=== PATIENT | female | born 1975 | race African-American/Black ===

== ENCOUNTER 2019-03-03 21:40 | Emergency (ER) | payer OTHER ==
[~2019-03-03] VITALS: Ht 152.4 cm; Wt 59.0 kg
[2019-03-03 22:00] VITALS: BP 115/70
--- NOTE | 2019-03-03 22:00 | NUR ---
ED Nurse Note: Pt ambulated to ED fom home c/o 5/10 abdominal pain and productive cough x2 days. Pt VSS A&Ox4
[2019-03-03] MEDS ORDERED: GUAIFENESIN DM118 M1 ORAL (22:08)
[2019-03-03] MEDS ORDERED: DICYCLOMINE HCL10 MG ORAL (22:09)
[2019-03-03] MEDS ORDERED: Lidocaine 2% Visc 15ml soln ORAL ONE (22:15)
[2019-03-03] MEDS ORDERED: Dicyclomine HCl 10mg/5ml oral soln ORAL ONE (22:15)
[2019-03-03 22:30] VITALS: BP 115/70
--- NOTE | 2019-03-03 22:30 | NUR ---
ER DISCHARGE NOTE: Patient is cleared to be discharged per ERMD, pt is aox4, on room air, with stable vital signs. pt was given dc and prescription instructions, pt was able to verbalize understanding, pt id band removed. pt is able to ambulate with steady gait. pt took all belongings.
[2019-03-03 22:40] LABS: APPEARANCE,URINE CLEAR; BILIRUBIN, URINE NEGATIVE (NEGATIVE); COLOR,URINE PALE YELLOW; GLUCOSE, URINE (UA) NEGATIVE (NEGATIVE); KETONES,URINE NEGATIVE (NEGATIVE); LEUKOCYTE ESTERASE ,URINE NEGATIVE (NEGATIVE); NITRITE,URINE NEGATIVE (NEGATIVE); PH,URINE 8 (4.5-8.0); PROTEIN,URINE NEGATIVE (NEGATIVE); UROBILINOGEN,URINE NORMAL MG/DL (0.0-1.0)
--- NOTE | 2019-03-04 01:39 | Emergency Room Report ---
History of Present Illness General Chief Complaint: Upper Respiratory Illness Source: Patient Present Illness HPI Patient 44-year-old female presented after increased congestion. Allergies: Coded Allergies: No Known Allergies (Unverified , 03/03/19) Patient History Reviewed Nursing Documentation: PMH: Agreed; PSxH: Agreed Nursing Documentation-PMH Past Medical History: No Stated History Review of Systems All Other Systems: negative except mentioned in HPI Physical Exam Vital Signs Date Time Temp Pulse Resp B/P (MAP) Pulse Ox O2 Delivery O2 Flow Rate FiO2 03/03/19 21:49 97.9 72 16 110/70 (83) 99 Room Air General Appearance: well appearing, no apparent distress, alert, GCS 15, non- toxic Head: normocephalic, atraumatic ENT: hearing grossly normal, normal voice Neck: full range of motion, supple Respiratory: no respiratory distress, speaking full sentences Cardiovascular #1: normal inspection, normal peripheral pulses, regular rate, rhythm Musculoskeletal: no calf tenderness Neurologic: normal gait Psychiatric: mood/affect normal Skin: no rash Medical Decision Making Diagnostic Impression: Primary Impression: Viral respiratory infection Last Vital Signs Date Time Temp Pulse Resp B/P (MAP) Pulse Ox O2 Delivery O2 Flow Rate FiO2 03/03/19 21:49 97.9 72 16 110/70 (83) 99 Room Air Disposition: HOME, SELF-CARE Condition: Stable Scripts Dicyclomine Hcl* (DICYCLOMINE HCL*) 10 Mg Capsule 10 MG ORAL QID, #20 CAP Prov: Steve Calderón MD 03/03/19 Guaifenesin/Dextromethorphan (Guaifenesin Dm Syrup) 5 Ml Syrup 1 TSP ORAL Q8H, #118 ML 0 Refills Prov: Steve Calderón MD 03/03/19 Referrals: GERONIMO PEÑA,REFERRING (PCP) Departure Forms: Return to Work Return to Work in (Days): 2 Patient Instructions: Upper Respiratory Infection, Adult, Abdominal Pain, Adult Steve Calderón MD Mar 04, 2019 01:39
== END 2019-03-03 22:45 | disposition home or self-care (01) ==
LOC: EMR 22:34
DX: J06.9 Acute upper respiratory infection, unspecified (principal)
CPT/HCPCS: 81003; 81025; 99283

== ENCOUNTER 2019-03-10 20:16 | Emergency (ER) | payer OTHER ==
[~2019-03-10 20:16] MED LIST: DICYCLOMINE HCL10 MG ORAL; GUAIFENESIN DM118 M1 ORAL
--- NOTE | 2019-03-10 20:19 | NUR ---
patient called for triage; not in waiting room
--- NOTE | 2019-03-10 20:30 | NUR ---
PATIENT CALLED FOR TRIAGE; NOT IN WAITING ROOM
--- NOTE | 2019-03-10 20:49 | NUR ---
ED Nurse Note: PATIENT CALLED FOR TRIAGE; NOT IN WAITING ROOM
--- NOTE | 2019-03-11 03:43 | Emergency Room Report ---
History of Present Illness General Chief Complaint: To Be Triaged Source: Medical Record Present Illness HPI Patient apparently presented with a cough. Allergies: Coded Allergies: No Known Allergies (Unverified , 03/03/19) Medical Decision Making Diagnostic Impression: Primary Impression: Patient left without being seen ER Course Patient left prior to the triage. Disposition: LEFT W/OUT BEING SEEN Condition: Unknown Referrals: GERONIMO PEÑA,REFERRING (PCP) Dean Solis MD Mar 11, 2019 03:43
[2019-03-11] MEDS ORDERED: ZITHROMAX250 MG ORAL (20:17)
[2019-03-11] MEDS ORDERED: VENTOLIN HFA18 GM INH (20:17)
[2019-03-11] MEDS ORDERED: PROMETHAZI6.25 MG/1 ORAL (20:17)
== END 2019-03-10 20:49 | disposition left against medical advice (07) ==
LOC: EMR 20:49
DX: R05 Cough (principal); Z53.21 Procedure and treatment not carried out due to patient leaving prior to being seen by health care provider

== ENCOUNTER 2019-03-11 19:51 | Emergency (ER) | payer OTHER ==
[~2019-03-11] VITALS: Ht 154.9 cm; Wt 59.0 kg
--- NOTE | 2019-03-11 20:16 | Emergency Room Report ---
History of Present Illness General Chief Complaint: Upper Respiratory Illness Source: Patient Present Illness HPI 44-year-old female with no significant past medical history here complaining of over 1 week of cough and congestion. Patient was previously here on March 03, 2019 and diagnosed with viral upper respiratory infection given proper medication. Patient reports that her cough has not improved. Patient came here yesterday however left without being seen. Denies fever and chills, sore throat, chest pain, shortness of breath, palpitation nausea vomiting. Patient reports that she has minimal white when coughing and wheezing at nighttime. Denies smoking tobacco or marijuana. Has not taken any other medication other than what has been prescribed. Allergies: Coded Allergies: No Known Allergies (Unverified , 03/03/19) Patient History Past Medical History: see triage record Past Surgical History: unable to obtain Pertinent Family History: none Last Menstrual Period: 02/23/19 Now: No Immunizations: UTD Reviewed Nursing Documentation: PMH: Agreed; PSxH: Agreed Nursing Documentation-PMH Past Medical History: No Stated History Review of Systems All Other Systems: negative except mentioned in HPI Physical Exam Vital Signs Date Time Temp Pulse Resp B/P (MAP) Pulse Ox O2 Delivery O2 Flow Rate FiO2 03/11/19 20:06 97.5 71 18 111/72 (85) 96 Room Air Sp02 EP Interpretation: reviewed, normal General Appearance: normal inspection, well appearing, no apparent distress, alert, GCS 15, non-toxic Head: normocephalic, atraumatic Eyes: bilateral eye normal inspection, bilateral eye PERRL ENT: normal ENT inspection, hearing grossly normal, normal pharynx, no angioedema, TMs + canals normal, uvula midline Neck: normal inspection, full range of motion, supple, thyroid normal, no meningismus, no bony tend Respiratory: normal inspection, chest non-tender, lungs clear, normal breath sounds, no rhonchi, no respiratory distress, no retraction, no accessory muscle use, no wheezing Cardiovascular #1: normal inspection, regular rate, rhythm, no edema, no murmur Gastrointestinal: normal inspection, non tender, soft, no bruit Genitourinary: no CVA tenderness Musculoskeletal: normal inspection, back normal, digits/nails normal Neurologic: normal inspection, alert, oriented x3 Psychiatric: normal inspection, judgement/insight normal Skin: no rash Lymphatic: normal inspection, no adenopathy Medical Decision Making PA Attestation All my diagnosis and treatment plans were reviewed ad discussed with my supervising physician Dr. Singer Diagnostic Impression: Primary Impression: Pharyngitis ER Course 44-year-old female with no significant past medical history here complaining of over 1 week of cough and congestion. Patient was previously here on March 03, 2019 and diagnosed with viral upper respiratory infection given proper medication. Patient reports that her cough has not improved. Patient came here yesterday however left without being seen. Denies fever and chills, sore throat, chest pain, shortness of breath, palpitation nausea vomiting. Patient reports that she has minimal white when coughing and wheezing at nighttime. Denies smoking tobacco or marijuana. Has not taken any other medication other than what has been prescribed. Ddx considered but are not limited to: strep pharyngitis, URI, tonsilitis, peritonsillar absacess, influneza Vital signs: are WNL, pt. is afebrile H&PE are most consistent with: Pharyngitis ORDERS: Azithromycin, Phenergan, albuterol ED INTERVENTIONS: None required at this time. DISCHARGE: At this time pt. is stable for d/c to home. Will provide printed patient care instructions, and any necessary prescriptions. Care plan and follow up instructions have been discussed with the patient prior to discharge. I advised the patient to start azithromycin and 5 to 6 days if no improvement of symptoms at this time patient has viral symptoms however she is retaining the emergency room with similar complaints advised the patient to follow-up with the primary care provider. Last Vital Signs Date Time Temp Pulse Resp B/P (MAP) Pulse Ox O2 Delivery O2 Flow Rate FiO2 03/11/19 20:06 97.5 71 18 111/72 (85) 96 Room Air Disposition: HOME, SELF-CARE Condition: Stable Scripts Azithromycin* (ZITHROMAX*) 250 Mg Tablet 250 MG ORAL DAILY, #6 TAB 0 Refills Take two tables once daily for 1 day, then one tablet once daily for 4 days. Prov: Constanza Alvarado 03/11/19 Albuterol Sulfate (VENTOLIN HFA) 18 Gm Hfa.aer.ad 2 PUFFS INH EVERY 6 HOURS, #18 GM 0 Refills Prov: Constanza Alvarado 03/11/19 Promethazine Hcl (PROMETHAZINE HCL*) 6.25 Mg/5 Ml Syrup 5 ML ORAL Q6H, #120 ML 0 Refills Prov: Constanza Alvarado 03/11/19 Patient Instructions: Pharyngitis, [id number] Additional Instructions: Start azithromycin and for for 5 days if no improvement in cough and congestion follow-up with a primary care provider Constanza Alvarado Mar 11, 2019 20:16
[2019-03-11] MEDS ORDERED: ZITHROMAX250 MG ORAL (20:17)
[2019-03-11] MEDS ORDERED: PROMETHAZI6.25 MG/1 ORAL (20:17)
[2019-03-11] MEDS ORDERED: VENTOLIN HFA18 GM INH (20:17)
[2019-03-11 20:20] VITALS: BP 111/72
--- NOTE | 2019-03-11 20:20 | NUR ---
ED Nurse Note: PT SEEN BY MD AND RELEASED, PT HERE FOR C/O COUGH, PT WAS SEEN HRE 3 DAYS AGO, PT HAS BEEN GIVEN RPESCRIPTIONS AND F/U INFO, ALSO CAN RE-VERBALIZE PROPER MEDICATION ADMINISTRATION AND S/S TO MONITOR FOR, ARMBAND REMOVED, PT AMBULATORY, NO SOB OR LABORED BREATHING, NAD NOTED DURING D/C TO HOME.
== END 2019-03-11 20:20 | disposition home or self-care (01) ==
LOC: EMR 20:16
DX: J02.9 Acute pharyngitis, unspecified (principal)
CPT/HCPCS: 99282

== ENCOUNTER 2019-10-11 05:55 | Emergency (ER) | payer MEDICAID, OTHER ==
[~2019-10-11] VITALS: Ht 154.9 cm; Wt 54.4 kg
[~2019-10-11 05:55] MED LIST changes: +PROMETHAZI6.25 MG/1 ORAL; +VENTOLIN HFA18 GM INH; +ZITHROMAX250 MG ORAL
[2019-10-11] MEDS ORDERED: Ketorolac 30mg Inj IV ONE (06:00)
--- NOTE | 2019-10-11 06:00 | NUR ---
ED Nurse Note: some previous charting on paper, recieved pt from home, here with c/o abdominal pain with diarrhea and nausea x 1 day, denies fevers or emesis, pt thinks she may have food poisioning, pt denies any other complaitns, pt is falling asleep in triage chair, is very drowsy, also her friend with her, pt gowned and placed on monitoring, will resume care as ordered and closely monitor.
[2019-10-11 06:05] VITALS: BP 100/67
--- NOTE | 2019-10-11 06:14 | Emergency Room Report ---
History of Present Illness General Chief Complaint: To Be Triaged Source: Patient Present Illness HPI Is a 44-year-old female with no past medical history. She presents with chief complaint abdominal pain and diarrhea. Onset last night. Pain is sharp and crampy. 9 out of 10. She thought this was because she ate some store-bought soup at the hot bar. 2 hours after which she had the symptoms. No one else at the same thing. No one also sick. She felt nauseous but no vomiting. Denies any other complaint. No fever chills. No bloody diarrhea. No cough or congestion. Pain is diffuse nature. No radiation. Allergies: Coded Allergies: No Known Allergies (Unverified , 03/03/19) Patient History Past Medical History: see triage record, old chart reviewed Past Surgical History: none, Pertinent Family History: none Social History: Denies: smoking Now: No Immunizations: other Reviewed Nursing Documentation: PMH: Agreed; PSxH: Agreed Review of Systems Eye: Denies: eye pain, blurred vision ENT: Denies: ear pain, nose congestion, throat swelling Respiratory: Denies: cough, shortness of breath Cardiovascular: Denies: chest pain, palpitations Gastrointestinal: Reports: abdominal pain, diarrhea, nausea; Denies: vomiting Musculoskeletal: Denies: back pain, joint pain Skin: Denies: rash Neurological: Denies: headache, numbness Endocrine: Denies: increased thirst, increased urine Hematologic/Lymphatic: Denies: easy bruising All Other Systems: negative except mentioned in HPI Physical Exam Vitals unremarkable Sp02 EP Interpretation: reviewed, normal General Appearance: well appearing, no apparent distress, alert Head: normocephalic, atraumatic Eyes: bilateral eye PERRL, bilateral eye EOMI ENT: hearing grossly normal, normal pharynx Neck: full range of motion, supple, no meningismus Respiratory: chest non-tender, lungs clear, normal breath sounds Cardiovascular #1: regular rate, rhythm, no murmur Gastrointestinal: no mass, no organomegaly, no bruit, non-distended, abnormal bowel sounds - hyperactive gurgling BS, tenderness Musculoskeletal: back normal, normal range of motion, gait/station normal Psychiatric: mood/affect normal Medical Decision Making Diagnostic Impression: Primary Impression: Abdominal pain Qualified Codes: R10.84 - Generalized abdominal pain Additional Impression: Diarrhea Qualified Codes: R19.7 - Diarrhea, unspecified ER Course Patient with abdominal pain and diarrhea. This may be early gastroenteritis versus food poisoning. Patient is otherwise stable. Will check labs and give medication and fluids. If everything is normal, she may be discharged home. [place] better now. Will discharge home. Status: improved Disposition: HOME, SELF-CARE Condition: Stable Scripts Ibuprofen* (MOTRIN*) 600 Mg Tablet 600 MG ORAL THREE TIMES A DAY, #30 TAB 0 Refills Prov: Daniel Lawler MD 10/11/19 Ondansetron (Zofran) 4 Mg Tablet 4 MG ORAL Q6H PRN for Nausea & Vomiting, #10 TAB 0 Refills Prov: Daniel Lawler MD 10/11/19 Additional Instructions: Advance the diet as tolerated. May take Pepto-Bismol for diarrhea. Do not take anything else. Follow-up with your doctor in 2 to 3 days if not better. Return if symptoms worsen. Daniel Lawler MD Oct 11, 2019 06:14
[2019-10-11] MEDS ORDERED: ZOFRAN4 MG ORAL (06:20)
[2019-10-11] MEDS ORDERED: IBUPROFEN600 MG ORAL (06:20)
[2019-10-11 06:23] LABS: BASOPHILS % (AUTO) 0.7 % (0.0-2.0); HEMOGLOBIN 14.2 G/DL (12.0-16.0); LYMPHOCYTES % (AUTO) 15.9 % (20.0-45.0); MEAN CORPUSCULAR VOLUME 84 FL (80-99); MONOCYTES % (AUTO) 5.2 % (1.0-10.0); NEUTROPHILS % (AUTO) 78.2 % (45.0-75.0); PLATELET COUNT 225 K/UL (150-450); RED BLOOD COUNT 4.98 M/UL (4.20-5.40); RED CELL DISTRIBUTION WIDTH 11.8 % (11.6-14.8); WHITE BLOOD COUNT 7.5 K/UL (4.8-10.8)
[2019-10-11 06:34] LABS: ANION GAP 9 mmol/L (5-15); BLOOD UREA NITROGEN 7 mg/dL (7-18); CALCIUM 9.3 MG/DL (8.5-10.1); CARBON DIOXIDE 25 MMOL/L (21-32); CHLORIDE 105 MMOL/L (98-107); CREATININE 0.8 MG/DL (0.55-1.30); POTASSIUM 4.7 MMOL/L (3.5-5.1); SODIUM 139 MMOL/L (136-145)
[2019-10-11 06:38] LABS: ALANINE AMINOTRANSFERASE 8 U/L (12-78); ALBUMIN 3.7 G/DL (3.4-5.0); ALBUMIN/GLOBULIN RATIO 0.8 (1.0-2.7); ALKALINE PHOSPHATASE 81 U/L (46-116); ASPARTATE AMINO TRANSFERASE 20 U/L (15-37); BILIRUBIN,TOTAL 0.5 MG/DL (0.2-1.0)
[2019-10-11 07:00] VITALS: BP 100/67
== END 2019-10-11 07:00 | disposition home or self-care (01) ==
LOC: EMR 06:00
DX: R10.84 Generalized abdominal pain (principal); R19.7 Diarrhea, unspecified; R11.0 Nausea
CPT/HCPCS: 36415; 80053; 83690; 85025; 96361; 96374; J2405; J7030; Z7502; 99284